=== PATIENT | female | born 1975 ===

== ENCOUNTER 2017-01-10 08:01 | Emergency (ER) | payer BC ==
[2017-01-10] MEDS ORDERED: Bupivacaine 0.5% 10 ML VIAL ONE (08:41)
[2017-01-10] MEDS ORDERED: Promethazine HCl 25 MG/ML VIAL ONE (08:41)
--- NOTE | 2017-01-10 09:24 | RAD ---
3 VIEWS LEFT WRIST: Date: 01/10/17 HISTORY: Fall. Pain. COMPARISON: None. FINDINGS: There is a distal radius fracture with dorsal angulation. Fracture lucency extends to the articular surface. There is associated comminution. Carpal bones are preserved. IMPRESSION: Distal radius fracture. POS: [facility]
--- NOTE | 2017-01-10 10:55 | RAD ---
EXAM: LEFT WRIST 3 VIEWS: COMPARISON: 01/10/17. HISTORY: Status post reduction. FINDINGS: Distal radius fracture is demonstrated. Alignment is improved. Overlying fiberglass cast limits ev aluation for fine bony detail. IMPRESSION: Interval reduction of a previously displaced distal radius fracture. POS: [facility]
== END 2017-01-10 10:28 | disposition home or self-care (01) ==
LOC: SCSER 08:01
DX: S52.532A Colles' fracture of left radius, initial encounter for closed fracture (principal); W17.89XA Other fall from one level to another, initial encounter
CPT/HCPCS: 25605; 96372; J1170; J2550; J3490